=== PATIENT | male | born 1970 | race Caucasian/White ===

== ENCOUNTER 2019-03-13 10:20 | Emergency (ER) | payer OTHER ==
[~2019-03-13] VITALS: Ht 182.9 cm; Wt 145.0 kg
[2019-03-13] MEDS ORDERED: OXYCODONE HCL/ACETAMINOPHEN 5/325MG TABLET PO ONE (10:45)
[2019-03-13] MEDS ORDERED: ONDANSETRON HCL 4MG/2ML INJ IV ONE (11:45)
[2019-03-13] MEDS ORDERED: MORPHINE SULFATE 4 MG/ML CPJ (NOT FOR IM USE) IV ONE (11:45)
[2019-03-13] MEDS ORDERED: PROPOFOL 200MG/20ML VIAL IV ONE (11:45)
[2019-03-13] MEDS ORDERED: KETAMINE HCL 50 MG/ML 10ML IV ONE (11:45)
[2019-03-13 13:41] VITALS: BP 149/72
== END 2019-03-13 13:41 | disposition home or self-care (01) ==
LOC: ER 10:20
DX: S82.444A Nondisplaced spiral fracture of shaft of right fibula, initial encounter for closed fracture (principal); S93.04XA Dislocation of right ankle joint, initial encounter; Z86.14 Personal history of Methicillin resistant Staphylococcus aureus infection; X50.1XXA Overexertion from prolonged static or awkward postures, initial encounter; Y93.89 Activity, other specified; Y92.89 Other specified places as the place of occurrence of the external cause; Y99.8 Other external cause status
CPT/HCPCS: 27840; 73590; 73600; 93005; 96374; 96375; 99285; J2270; J2405; J2704; J3490; Z7610